=== PATIENT | male | born 1990 | race Caucasian/White ===

== ENCOUNTER 2021-12-19 17:19 | Emergency (ER) | payer OTHER, SELFPAY ==
[2021-12-19 17:33] VITALS: BP 149/81; PULSE 77; RESP 17; TEMP 36.8; O2SAT 99; BMI 40.6
[2021-12-19] MEDS: KETOROLAC 30 MG/ML VIAL IM (18:11)
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
[2021-12-19 19:01] VITALS: BP 138/91; PULSE 86; RESP 18; O2SAT 96
== END 2021-12-19 19:03 | disposition home or self-care (01) ==
PROVIDERS: Emergency Provider Physician Assistant Medical
DX: S39.012A Strain of muscle, fascia and tendon of lower back, initial encounter (principal); Z87.891 Personal history of nicotine dependence; V89.2XXA Person injured in unspecified motor-vehicle accident, traffic, initial encounter
CPT/HCPCS: 96372; 99283; J1885

== ENCOUNTER → 2021-12-30 13:36 | Outpatient (CLI) | payer OTHER, SELFPAY ==
--- NOTE | 2021-12-30 13:50 | DI.RAD.S_ITS ---
PROCEDURE: XR CERVICAL SPINE 2V OR 3V INDICATIONS: VESNA PAIN TECHNIQUE: 3 view(s) of the cervical spine were acquired. COMPARISON: [facility], CR, XR THORACIC SPINE 2V, 12/30/2021, 13:45. FINDINGS: Bones: No fractures or dislocations to the C7 level. Small vertebral body osteophytes. The lateral masses of C1 appear intact on the odontoid view. No suspicious bony lesions. Soft tissues: No prevertebral soft tissue swelling. IMPRESSION: Mild degenerative change in the cervical spine. Dictated by: Betito Stevens M.D. on 12/30/2021 at 16:34 Approved by: Betito Stevens M.D. on 12/30/2021 at 16:35
--- NOTE | 2021-12-30 13:50 | DI.RAD.S_ITS ---
PROCEDURE: XR THORACIC SPINE 2V INDICATIONS: BACK PAIN TECHNIQUE: 3 views of the thoracic spine were acquired. COMPARISON: None. FINDINGS: Bones: No fractures or dislocations. No suspicious bony lesions. 12 pairs of ribs are noted, and appear intact where visualized. Soft tissues: No paravertebral stripe thickening. IMPRESSION: No significant osseous abnormality of the thoracic spine. Dictated by: Betito Stevens M.D. on 12/30/2021 at 16:33 Approved by: Betito Stevens M.D. on 12/30/2021 at 16:34
--- NOTE | 2021-12-30 13:50 | DI.RAD.S_ITS ---
PROCEDURE: XR LUMBAR SPINE 2-3V INDICATIONS: BACK PAIN TECHNIQUE: 2 views of the lumbar spine were acquired. COMPARISON: [facility], CR, XR THORACIC SPINE 2V, 12/30/2021, 13:45. FINDINGS: Bones: 5 [id number] vertebrae are present. There is normal bony alignment. No vertebral body compression fractures. No suspicious bony lesions. Soft tissues: Overlying bowel gas pattern is normal. No suspicious soft tissue calcifications. IMPRESSION: No significant osseous abnormality. Dictated by: Lul ARREDONDO Interpreted: Betito Stevens MD on 12/30/2021 at 14:19 Transcribed by: MADDY on 12/30/2021 at 14:20 Approved by: Betito Stevens M.D. on 12/30/2021 at 18:39
== END ==
PROVIDERS: Referring Provider Chiropractor; Visit Provider Chiropractor
DX: M47.812 Spondylosis without myelopathy or radiculopathy, cervical region (principal); M54.9 Dorsalgia, unspecified
CPT/HCPCS: 72040; 72100; 72110